=== PATIENT | male | born 1950 | race African-American/Black ===

== ENCOUNTER 2020-04-29 23:01 | Emergency (ER) | payer MEDICAID, MEDICARE, OTHER ==
[2020-04-30] MEDS ORDERED: Dexamethasone 10 MG/ML SDV IM ONE (00:07)
[2020-04-30] MEDS ORDERED: diphenhydrAMINE 25 MG Cap PO ONE (00:08)
[2020-04-30 00:11] VITALS: BP 167/81; PULSE 64
--- NOTE | 2020-04-30 00:11 | EDM.PDOC ---
ED HPI GENERAL MEDICAL PROBLEM - General Chief Complaint: ENT Problem Stated Complaint: SWOLLEN FACE Time Seen by Provider: 04/29/20 23:09 Source of Information: Reports: Patient History Limitations: Reports: No Limitations - History of Present Illness INITIAL COMMENTS - FREE TEXT/NARRATIVE: Patient presents with apparent allergic reaction. Noted dry skin yesterday so put some Olay cream on his face. Woke up with his eyes swollen shut and inability to see. Has since improved mildly such that he can open his eyes to see but still quite swollen. It is itchy but not painful. No airway involvement, no SOB or sore throat, no N/V or other symptoms. 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 Likely were benign nodules given history. Social & Family History - Family History Family Medical History: Noncontributory - Living Situation & Occupation Living situation: Reports: ED ROS ENT - Review of Systems Review Of Systems: Comprehensive ROS is negative, except as noted in HPI. ED EXAM, ENT - Physical Exam Exam: See Below Exam Limited By: No Limitations General Appearance: Alert, WD/WN, No Apparent Distress Eye Exam: Bilateral Eye: EOMI, PERRL, Other (Significant swelling of eyelids b/l symmetric mild erythema) Ears: Normal External Exam Nose: Normal Inspection Mouth/Throat: Normal Inspection, Normal Gums, Normal Lips, Normal Oropharynx, Normal Teeth. No: Uvular Deviation, Uvular Edema Head: Atraumatic, Normocephalic Neck: Normal Inspection Respiratory/Chest: No Respiratory Distress, Lungs Clear, Normal Breath Sounds, No Accessory Muscle Use Cardiovascular: Normal Peripheral Pulses, Regular Rate, Rhythm Extremities: Normal Inspection Neurological: Alert Psychiatric: Normal Affect, Normal Mood Skin: Warm, Dry, Intact, Normal Color Course - Vital Signs Last Recorded V/S: Last Vital Signs Temp 97.4 F 04/30/20 00:09 Pulse 64 09/16/20 00:09 Resp 18 04/30/20 00:09 BP 167/81 H 04/30/20 00:09 Pulse Ox 97 04/30/20 00:09 - Orders/Labs/Meds Meds: Medications Discontinued Medications Generic Name Dose Route Start Last Admin Trade Name José PRN Reason Stop Dose Admin Dexamethasone 10 mg 04/30/20 00:07 04/30/20 00:36 Dexamethasone IM 04/30/20 00:08 10 mg ONETIME ONE Administration Diphenhydramine HCl 25 mg 04/30/20 00:08 04/30/20 00:36 Benadryl PO 04/30/20 00:09 25 mg ONETIME ONE Administration - Re-Assessments/Exams Free Text/Narrative Re-Assessment/Exam: 04/30/20 00:44 Will d/c with short course of prednisone, return precautions for anaphylaxis discussed Departure - Departure Time of Disposition: 00:44 Disposition: Home, Self-Care 01 Clinical Impression: Allergic reaction Qualifiers: Encounter type: initial encounter Qualified Code(s): T78.40XA - Allergy, unspecified, initial encounter - Discharge Information Prescriptions: predniSONE 40 mg PO QAM 5 Days #10 tab Instructions: Allergies, Adult, [id number] Referrals: PCP,None [Primary Care Provider] - Forms: ED Department Discharge Additional Instructions: The following information is given to patients seen in the emergency department who are being discharged to home. This information is to outline your options for follow-up care. We provide all patients seen in our emergency department with a follow-up referral. The need for follow-up, as well as the timing and circumstances, are variable depending upon the specifics of your emergency department visit. If you don't have a primary care physician on staff, we will provide you with a referral. We always advise you to contact your personal physician following an emergency department visit to inform them of the circumstance of the visit and for follow-up with them and/or the need for any referrals to a consulting specialist. The emergency department will also refer you to a specialist when appropriate. This referral assures that you have the opportunity for follow-up care with a specialist. All of these measure are taken in an effort to provide you with optimal care, which includes your follow-up. Under all circumstances we always encourage you to contact your private physician who remains a resource for coordinating your care. When calling for follow-up care, please make the office aware that this follow-up is from your recent emergency room visit. If for any reason you are refused follow-up, please contact the [facility] Emergency Department at and asked to speak to the emergency department charge nurse. Follow up with a primary care physician in 1-3 days; if you do not already have one, you can utilize either of the below clinics and let them know you were seen in the ED and require eduardo follow-up: [facility] [address] [place] [id number] [facility] [address] [place] [id number] Sepsis Event Note (ED) - Focused Exam Vital Signs: Vital Signs Temp Pulse Resp BP Pulse Ox 04/30/20 00:09 97.4 F 64 18 167/81 H 97
== END 2020-04-30 01:03 | disposition home or self-care (01) ==
LOC: MW.ED 23:01
DX: T78.40XA Allergy, unspecified, initial encounter (principal)
CPT/HCPCS: 96372; 99283; A9270; J1100; 99282